=== PATIENT | male | born 1995 | race Caucasian/White ===

== ENCOUNTER 2021-02-24 11:38 | Emergency (ER) | payer OTHER ==
[~2021-02-24] VITALS: Ht 193 cm; Wt 102.5 kg
--- NOTE | 2021-02-24 12:31 | NUR ---
TO ER BED 8, C/O LOWER ABDOMINAL PAIN, NAUSEA, VOMITING, DIARRHEA W/ NOTED BLOOD SINCE YESTERDAY, AAOX3, BREATHING EVEN AND NON LABORED, CONNECTED TO MONITOR
--- NOTE | 2021-02-24 12:31 | NUR ---
TO ER BED 8, C/O LOWER ABDOMINAL PAIN, NAUSEA, VOMITING, DIARRHEA W/ NOTED BLOOD SINCE YESTERDAY, AAOX3, BREATHING EVEN AND NON LABORED, CONNECTED TO MONITOR
[2021-02-24 14:01] LABS: BASOPHILS % (AUTO) 0.2 % (0.0-2.0); HEMATOCRIT 50 % (39-51); HEMOGLOBIN 17.3 g/dL (13.5-17.5); LYMPHOCYTES # (AUTO) 0.6 K/uL (0.8-4.8); LYMPHOCYTES % (AUTO) 2.9 % (20.0-44.0); MEAN CORPUSCULAR HGB CONC 35 g/dl (31.0-36.0); MEAN CORPUSCULAR VOLUME 92 fL (80-96); MONOCYTES # (AUTO) 1.5 K/uL (0.1-1.30); MONOCYTES % (AUTO) 7.2 % (2.0-12.0); NEUTROPHILS # (AUTO) 19.2 K/uL (1.8-8.9); NEUTROPHILS % (AUTO) 89.7 % (43.0-81.0); PLATELET COUNT (AUTO) 298 K/uL (150-450); RED BLOOD CELL COUNT(AUTO) 5.43 MIL/uL (4.5-6.0); WHITE BLOOD COUNT (AUTO) 21.4 K/uL (4.3-11.0)
[2021-02-24 14:24] LABS: CALCIUM, SERUM 8.9 mg/dL (8.5-10.1); CREATININE 1.4 mg/dL (0.6-1.3); POTASSIUM 3.4 mmol/L (3.5-5.1)
[2021-02-24 14:28] LABS: ALBUMIN 3.9 g/dL (3.4-5.0); BILIRUBIN,DIRECT 0.3 mg/dL (0.0-0.2); BILIRUBIN,TOTAL 1.2 mg/dL (0.2-1.0); TOTAL PROTEIN, SERUM 7.6 g/dL (6.4-8.2)
--- NOTE | 2021-02-24 14:32 | NUR ---
URINE COLLECTED AND CALLED LAB TO CLERK SECRETARY
--- NOTE | 2021-02-24 14:32 | NUR ---
URINE COLLECTED AND CALLED LAB TO FISH HOUSE WORKER
--- NOTE | 2021-02-24 14:55 | NUR ---
PT SEEN BY LAW MORALES. OK FOR PT TO DRINK WATER. OFFERED PT WATER; PT TOLERATING WELL
--- NOTE | 2021-02-24 14:55 | NUR ---
PT SEEN BY LAW MORALES. OK FOR PT TO DRINK WATER. OFFERED PT WATER; PT TOLERATING WELL
[2021-02-24] MEDS ORDERED: KETOROLAC TROMETHAMINE 15 MG/ML VIAL ONE (14:59)
[2021-02-24] MEDS ORDERED: ONDANSETRON HCL/PF 4 MG/2 ML VIAL ONE (14:59)
[2021-02-24] MEDS ORDERED: PIPERACILLIN /TAZOBACTAM 3.375 G VIAL IV ONE (14:59)
[2021-02-24] MEDS ORDERED: PANTOPRAZOLE 40 MG VIAL ONE (14:59)
[2021-02-24] MEDS ORDERED: PANTOPRAZOLE 40 MG VIAL IV ONE (15:00)
[2021-02-24] MEDS ORDERED: PIPERACILLIN /TAZOBACTAM 2.25 G in IV D5W 50 ML IV ONE (15:00)
[2021-02-24] MEDS ORDERED: ONDANSETRON HCL/PF 4 MG/2 ML VIAL IVP ONE (15:00)
[2021-02-24] MEDS ORDERED: KETOROLAC TROMETHAMINE INJ 30 MG/ML VIAL IV ONE (15:00)
[2021-02-24] MEDS ORDERED: IV NS 0.9% 1,000 ML BAG IV ONE (15:00)
[2021-02-24] MEDS ORDERED: IOHEXOL-300 100 ML VIAL IV ONE (15:04)
[2021-02-24] MEDS ORDERED: IV NS 0.9% 250 ML IV ONE (15:04)
--- NOTE | 2021-02-24 15:09 | NUR ---
PT TAKEN TO CT VIA [facility]
--- NOTE | 2021-02-24 15:09 | NUR ---
PT TAKEN TO CT VIA [facility]
--- NOTE | 2021-02-24 15:20 | NUR ---
THE PATIENT IS BACK FROM CT
--- NOTE | 2021-02-24 15:20 | NUR ---
THE PATIENT IS BACK FROM CT
[2021-02-24] MEDS ORDERED: IV NS 0.9% 1,000 ML IV ONE (16:00)
[2021-02-24] MEDS ORDERED: METR-147 PO (16:08)
[2021-02-24] MEDS ORDERED: IBUP-1957 PO (16:08)
[2021-02-24] MEDS ORDERED: CIPR500T5 PO (16:08)
[2021-02-24 17:01] LABS: BILIRUBIN,URINE SMALL (NEGATIVE); COLOR,URINE DARK YELLOW (YELLOW); LEUKOCYTE ESTERASE ,URINE NEGATIVE (NEGATIVE); NITRITE, URINE NEGATIVE (NEGATIVE); PROTEIN,URINE TRACE mg/dl (NEGATIVE); UGLUCOSE NEGATIVE (NEGATIVE); UROBILINOGEN,URINE 0.2 EU/dL (0.2)
[2021-02-24 17:24] LABS: BACTERIA,URINE None seen /HPF (None Seen); RBC,URINE 0-2 /HPF (0-2); WBC,URINE 0-2 /HPF (0-3)
[2021-02-24 17:26] LABS: MUCUS,URINE Moderate /LPF (None Seen); SQUAMOUS EPITHELIAL CELL,UR None Seen /HPF (None Seen)
--- NOTE | 2021-02-24 17:27 | NUR ---
The patient is alert and oriented x4. Denies pain. In room air and denies SOB. Respiration regular and unlabored. IV removed. Catheter intact and site benign. Pressure and 4x4 applied to site. No bleeding noted.Patient discharged to home in stable condition. Written and verbal after care instructions given. Patient verbalizes understanding of instruction.
[2021-02-24 17:28] VITALS: BP 116/75
[2021-02-25] MEDS ORDERED: DEXT20TA6 PO (08:48)
[2021-02-25] MEDS ORDERED: EMTR1TAB6 PO (08:49)
[2021-02-26] MEDS ORDERED: ACET-907 PO (11:46)
== END 2021-02-24 17:29 | disposition home or self-care (01) ==
LOC: ER 11:42
DX: K52.9 Noninfective gastroenteritis and colitis, unspecified (principal)
CPT/HCPCS: 36415; 74177; 80048; 80076; 81001; 83690; 85025; 96361; 96365; 96375; 99285; C9113; J1885; J2405; J2543 ×2; J7030 ×2; J7050; J7060; Q9967

== ENCOUNTER 2021-02-25 06:47 | Inpatient (IN) | payer OTHER ==
[~2021-02-25] VITALS: Ht 193 cm; Wt 104.3 kg
[~2021-02-25 06:47] MED LIST: CIPR500T5 PO; IBUP-1957 PO; METR-147 PO
--- NOTE | 2021-02-25 07:10 | NUR ---
C/O ABD PAIN WITH BLOODY DIARRHEA, SEEN HERE YESTERDAY, D/C WITH ATB, DENIES SOB, AAOX3, BREATHING EVEN AND NON LABORED, CONNECTED TO MONITOR, AWAITING MD ORDERS
[2021-02-25] MEDS ORDERED: ONDANSETRON HCL/PF 4 MG/2 ML VIAL ONE (08:20)
[2021-02-25] MEDS ORDERED: MORPHINE SULFATE INJ 4 MG/ML DISP.SYRIN ONE ×2 (08:21→12:23)
[2021-02-25] MEDS ORDERED: IV NS 0.9% 1,000 ML BAG IV ONE ×2 (08:30→12:00)
[2021-02-25] MEDS ORDERED: PIPERACILLIN /TAZOBACTAM 3.375 G in IV D5W 50 ML IV ONE (08:30)
[2021-02-25] MEDS ORDERED: MORPHINE SULFATE INJ 2 MG/ML DISP.SYRIN IV ONE ×2 (08:30→12:00)
[2021-02-25] MEDS ORDERED: ONDANSETRON HCL/PF 4 MG/2 ML VIAL IV ONE (08:30)
[2021-02-25] MEDS ORDERED: DEXT20TA6 PO (08:48)
[2021-02-25] MEDS ORDERED: EMTR1TAB6 PO (08:49)
--- NOTE | 2021-02-25 08:52 | NUR ---
MOVE SHEET SUBMITTED AND CALLED FOR MS BED.
[2021-02-25 09:00] LABS: BASOPHILS % (AUTO) 0.3 % (0.0-2.0); EOSINOPHILS % (AUTO) 0.3 % (0.0-6.0); HEMATOCRIT 49 % (39-51); HEMOGLOBIN 16.6 g/dL (13.5-17.5); LYMPHOCYTES # (AUTO) 0.6 K/uL (0.8-4.8); LYMPHOCYTES % (AUTO) 4.5 % (20.0-44.0); MEAN CORPUSCULAR HGB CONC 34 g/dl (31.0-36.0); MEAN CORPUSCULAR VOLUME 93 fL (80-96); MONOCYTES # (AUTO) 1.1 K/uL (0.1-1.30); MONOCYTES % (AUTO) 8.5 % (2.0-12.0); NEUTROPHILS # (AUTO) 10.8 K/uL (1.8-8.9); NEUTROPHILS % (AUTO) 86.4 % (43.0-81.0); PLATELET COUNT (AUTO) 277 K/uL (150-450); RED BLOOD CELL COUNT(AUTO) 5.27 MIL/uL (4.5-6.0); WHITE BLOOD COUNT (AUTO) 12.5 K/uL (4.3-11.0)
[2021-02-25 09:09] LABS: ALBUMIN 3.3 g/dL (3.4-5.0); BILIRUBIN,DIRECT 0.2 mg/dL (0.0-0.2); BILIRUBIN,TOTAL 0.5 mg/dL (0.2-1.0); CALCIUM, SERUM 9.3 mg/dL (8.5-10.1); CREATININE 1.3 mg/dL (0.6-1.3); POTASSIUM 3.6 mmol/L (3.5-5.1); TOTAL PROTEIN, SERUM 6.8 g/dL (6.4-8.2)
--- NOTE | 2021-02-25 09:38 | NUR ---
ELAINE [phone] RUVALCABA.
--- NOTE | 2021-02-25 11:42 | NUR ---
COVID SWAB DONE AND SENT TO LAB
--- NOTE | 2021-02-25 13:45 | NUR ---
ELAINE HANKS [phone] NO BEDS AVAILABLE AT THE MOMENT.
--- NOTE | 2021-02-25 14:00 | NUR ---
DR PINEDA AT THE BEDSIDE
[2021-02-25] MEDS ORDERED: ACETAMINOPHEN 650 MG/20.3 ML UDC PO PRN (14:30)
[2021-02-25] MEDS ORDERED: HYDROCODONE/APAP 5/325MG TABLET PO PRN (14:30)
[2021-02-25] MEDS ORDERED: PANTOPRAZOLE 40 MG VIAL ONE (15:20)
[2021-02-25] MEDS ORDERED: MORPHINE SULFATE INJ 2 MG/ML DISP.SYRIN ONE ×2 (15:20→20:07)
[2021-02-25] MEDS: PANTOPRAZOLE 40 MG VIAL IV SCH (15:30)
[2021-02-25] MEDS: IV D5/ 0.9% NACL 1,000 ML IV PRN ×2 (15:34→23:46)
[2021-02-25] MEDS: MORPHINE SULFATE INJ 2 MG/ML DISP.SYRIN IV PRN ×3 (15:35→23:48)
--- NOTE | 2021-02-25 15:36 | NUR ---
WAITING FOR PHARMACY TO DELIVERED ORDERED FLAGYL AND LEVAQUIN. FOLLOW UP CALL IS MADE. WILL CONTINUE TO FOLLOW UP UNTIL THE MEDS ARE DELIVERED.
[2021-02-25] MEDS: METRONIDAZOLE 500MG/ NS 100ML 500 MG in PREMIX 1 EA IV SCH ×2 (16:00→23:07)
[2021-02-25] MEDS: LEVOFLOXACIN 500 MG /D5W 100ML 500 MG in PREMIX 1 EA IV SCH (17:01)
--- NOTE | 2021-02-25 21:28 | NUR ---
BED 312-1
--- NOTE | 2021-02-25 21:35 | NUR ---
REPORT GIVEN TO ERIK FRAGA
[2021-02-25] MEDS ORDERED: METRONIDAZOLE 500MG/ NS 100ML 100 ML IV ONE (23:03)
--- NOTE | 2021-02-25 23:24 | NUR ---
RN ADMITTING NOTE PATIENT BROUGHT TO MS FLOOR FROM ER. PATIENT IS A/O X 4, ABLE TO MAKE NEEDS KNOWN. PATIENT ON RA , TOLERATING WELL, NO SOB NOTED. PATIENT NOTED TO HAVE BLOODY STOOL/BLOOD WHEN USING THE BATHROOM. PATIENT IS INDEPENDENT WITH WALKING AND STEADY. PATIENT HAS A LAC 20G PATENT AND INTACT, PATIENT CAME WITH FLAGYL RUNNING. PATIENT IS VACCINATED WITH JONAH AND JONAH JUNE 2020. PATIENT'S SKIN IS INTACT. BELONGINGS INVENTORIED, ORIENTED PATIENT TO THE ROOM, ERIK BEEBE. SAFETY MEASURES IN PLACE: BED LOCKED AND IN LOWEST POSITION, CALL LIGHT WITHIN REACH, SIDE RAILS UP. WILL MONITOR PATIENT CLOSELY.
--- NOTE | 2021-02-26 | NUR ---
PT TRANSFERRED, VSS, NO ACUTE DISTRESS NOTED
[2021-02-26] MEDS ORDERED: METRONIDAZOLE 500MG/ NS 100ML 100 ML IV ONE (05:29)
[2021-02-26] MEDS: METRONIDAZOLE 500MG/ NS 100ML 500 MG in PREMIX 1 EA IV SCH (05:55)
[2021-02-26] MEDS: MORPHINE SULFATE INJ 2 MG/ML DISP.SYRIN IV PRN ×3 (06:27→11:56)
[2021-02-26 07:03] LABS: BASOPHILS % (AUTO) 0.2 % (0.0-2.0); HEMATOCRIT 42 % (39-51); HEMOGLOBIN 14.2 g/dL (13.5-17.5); LYMPHOCYTES # (AUTO) 1.5 K/uL (0.8-4.8); LYMPHOCYTES % (AUTO) 19.8 % (20.0-44.0); MEAN CORPUSCULAR HGB CONC 34 g/dl (31.0-36.0); MEAN CORPUSCULAR VOLUME 93 fL (80-96); MONOCYTES # (AUTO) 0.9 K/uL (0.1-1.30); MONOCYTES % (AUTO) 12.5 % (2.0-12.0); NEUTROPHILS # (AUTO) 4.9 K/uL (1.8-8.9); NEUTROPHILS % (AUTO) 66.5 % (43.0-81.0); PLATELET COUNT (AUTO) 256 K/uL (150-450); RED BLOOD CELL COUNT(AUTO) 4.53 MIL/uL (4.5-6.0); WHITE BLOOD COUNT (AUTO) 7.4 K/uL (4.3-11.0)
--- NOTE | 2021-02-26 07:21 | NUR ---
RN CLOSING NOTE PATIENT IN BED AWAKE, VERBALIZES DECREASED PAIN ON ABD AFTER MORPHINE AT 0627. PATIENT IS ABLE TO MAKE NEEDS KNOWN, A/O X 4. TOLERATING ROOM AIR, NO SOB NOTED. GOT AN ORDER FOR ZOFRAN 4 MG Q4HR PRN FOR PATIENT'S NAUSEA. SAFETY MEASURES IN PLACE: BED LOCKED AND IN LOWEST POSITION, CALL LIGHT WITHIN REACH, SIDE RAILS UP. ALL NEEDS MET AND ATTENDED, ALL ORDERS CARRIED OUT. WILL ENDORSE TO DAY SHIFT NURSE FOR [facility]WK.
[2021-02-26] MEDS ORDERED: ONDANSETRON HCL/PF 4 MG/2 ML VIAL IV PRN (07:30)
--- NOTE | 2021-02-26 07:30 | NUR ---
MS RN OPENING NOTE RECEIVED PATIENT IN BED AWAKE, A/O X4, ABLE TO MAKE NEEDS KNOWN. NO PAIN VERBALIZED AT THIS TIME. EQUAL CHEST EXPANSION THROUGHOUT RESPIRATIONS WITH NO S/SX OF SOB NOTED. PENDING ORDER FOR ZOFRAN 4 MG Q4HR PRN FOR PATIENT'S NAUSEA. SAFETY MEASURES IN PLACE: BED WHEELS LOCKED AND IN LOWEST POSITION, CALL LIGHT WITHIN REACH, SIDE RAILS UP X2. WILL CONTINUE TO MONITOR PATIENT.
[2021-02-26 07:54] LABS: CREATININE 1.2 mg/dL (0.6-1.3); MAGNESIUM 2.5 mg/dL (1.8-2.4); POTASSIUM 3.6 mmol/L (3.5-5.1)
[2021-02-26 08:00] LABS: THYROID STIMULATING HORMONE 2.212 uIU/mL (0.358-3.74)
[2021-02-26 08:50] VITALS: BP 105/65
[2021-02-26] MEDS: PANTOPRAZOLE 40 MG VIAL IV SCH (09:19)
[2021-02-26] MEDS ORDERED: ACET-907 PO (11:46)
[2021-02-26] MEDS ORDERED: METRONIDAZOLE 500MG/ NS 100ML 500 MG in PREMIX 1 EA IV SCH (13:00)
[2021-02-26] MEDS: LEVOFLOXACIN 500 MG /D5W 100ML 500 MG in PREMIX 1 EA IV SCH (15:24)
[2021-02-26 16:24] VITALS: BP 93/57
--- NOTE | 2021-02-26 18:30 | NUR ---
ms rn patients instructions given and understood, prescription given, patient went home accompanied by girlfriend,all needs attended.
== END 2021-02-26 18:13 | disposition home or self-care (01) | DRG 249 ==
LOC: ER 06:47 → TRANSITION 14:55 → MED 23:00
PROVIDERS: ADMIT Internal Medicine; ATTEND Internal Medicine
DX: A09 Infectious gastroenteritis and colitis, unspecified (principal); E86.0 Dehydration; Z20.822 Contact with and (suspected) exposure to COVID-19
CPT/HCPCS: 36415; 80048-TC; 80076-TC; 83605-TC; 83690-TC; 83735-TC; 84443-TC; 85025-TC; 85730-TC; 87040-TC; 87081-TC; A4216; C9113; C9803; G0378; J1956; J2270; J2405; J2543; J7030; J7042; J7060